=== PATIENT | female | born 1940 | race Hispanic/Latino ===

== ENCOUNTER 2017-01-31 09:57 | Outpatient (CLI) | payer MEDICARE, OTHER ==
--- NOTE | 2017-02-01 09:05 | PET Report ---
PET/CT:01/31/17 09:57:00 CLINICAL: Lung cancer restaging. RADIOPHARMACEUTICAL: 14.48mCi F18-FDG. COMPARISON: 10/25/16 PET/CT TECHNIQUE- Following intravenous injection of F-18 FDG and an approximately 60 minute uptake period, CT and PET images from the mid skull to the upper thighs were acquired with the patient in the fasted state. No contrast was administered. The CT protocol used for this PET CT study is designed for attenuation correction and anatomic localization of PET abnormalities. This semiconductor wafers saw operator CT is not desired to produce and cannot replace, czsdt-rn-hcc-art diagnostic CT scans with specific imaging protocols for different body parts and indications. Plasma glucose at the time of this test: 98g/dl. The standardized uptake values (SUV) are normalized to patient body weight and indicate the highest activity concentration (SUV max) in a given disease site. FINDINGS: Brain--Physiologic FDG uptake in the visualized regions of the brain. Neck--Physiologic FDG uptake . Chest--Physiologic FDG uptake in mediastinal blood pool and myocardium. Stable 2 cm soft tissue mass overlying the right seventh rib. FDG uptake is equal to background. Lungs--No abnormal uptake. No pulmonary nodule or mass. Stable right upper lobe scar. Pleura/pericardium--No abnormal uptake. Thoracic nodes--No abnormal uptake. Hepatobiliary--No abnormal uptake. Liver background SUV mean, as a reference for comparing FDG studies, is 4.4 compared to 4.0 on the last exam. No liver mass. Spleen--No abnormal uptake. Pancreas--No abnormal uptake. Adrenal Glands--No abnormal uptake. Kidneys/Ureters/Bladder--No abnormal uptake. Abdominopelvic Nodes--No abnormal uptake. Bowel/Peritoneum/Mesentery--No abnormal uptake. Pelvic organs--No abnormal uptake. Bones/Soft Tissues--No abnormal uptake. 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 Other findings: Status post cystectomy with a right ileal pouch. IMPRESSION- Negative study with no evidence of disease recurrence or metastasis. Stable probably benign 2 cm soft tissue mass in the right lateral chest wall at the right seventh rib.
== END 2017-01-31 09:58 | disposition home or self-care (01) ==
LOC: PET 09:57
PROVIDERS: ATTEND Internal Medicine Hematology & Oncology
DX: C34.91 Malignant neoplasm of unspecified part of right bronchus or lung (principal); C67.9 Malignant neoplasm of bladder, unspecified; M84.38XD Stress fracture, other site, subsequent encounter for fracture with routine healing; R22.2 Localized swelling, mass and lump, trunk; Z90.6 Acquired absence of other parts of urinary tract; Z79.899 Other long term (current) drug therapy; X58.XXXD Exposure to other specified factors, subsequent encounter
CPT/HCPCS: 78815; 82962; A9552

== ENCOUNTER 2017-05-09 12:41 | Outpatient (CLI) | payer MEDICARE, OTHER ==
--- NOTE | 2017-05-10 13:23 | PET Report ---
PET/CT:05/09/17 12:41:00 CLINICAL: Lung cancer restaging RADIOPHARMACEUTICAL: 14.74mCi F18-FDG. COMPARISON: 01/04/17 PET/CT TECHNIQUE- Following intravenous injection of F-18 FDG and an approximately 60 minute uptake period, CT and PET images from the mid skull to the upper thighs were acquired with the patient in the fasted state. No contrast was administered. The CT protocol used for this PET CT study is designed for attenuation correction and anatomic localization of PET abnormalities. This cable splicer assistant CT is not desired to produce and cannot replace, ftphz-rb-umn-art diagnostic CT scans with specific imaging protocols for different body parts and indications. Plasma glucose at the time of this test: 103g/dl. The standardized uptake values (SUV) are normalized to patient body weight and indicate the highest activity concentration (SUV max) in a given disease site. FINDINGS: Brain--Physiologic FDG uptake in the visualized regions of the brain. Neck--Physiologic FDG uptake . Chest--Physiologic FDG uptake in mediastinal blood pool and myocardium. A stable 2 cm soft tissue mass overlying the right seventh rib with FDG uptake equal to background at 2.7. Lungs--No abnormal uptake. Stable posterior right upper lobe scar. No pulmonary nodule or mass. Pleura/pericardium--No abnormal uptake. Thoracic nodes--No abnormal uptake. Hepatobiliary--No abnormal uptake. Liver background SUV mean, as a reference for comparing FDG studies, is 4.9 compared to 4.5 on the last exam. No liver mass. Spleen--No abnormal uptake. Pancreas--No abnormal uptake. Adrenal Glands--No abnormal uptake. Kidneys/Ureters/Bladder--No abnormal uptake. Abdominopelvic Nodes--No abnormal uptake. Bowel/Peritoneum/Mesentery--No abnormal uptake. Pelvic organs--No abnormal uptake. Bones/Soft Tissues--No abnormal uptake. 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 Other findings: Status post cystectomy with a right ileal pouch. IMPRESSION- Stable disease with no new finding.
== END 2017-05-09 12:42 | disposition home or self-care (01) ==
LOC: PET 12:41
PROVIDERS: ATTEND Internal Medicine Hematology & Oncology
DX: C34.91 Malignant neoplasm of unspecified part of right bronchus or lung (principal); C67.9 Malignant neoplasm of bladder, unspecified; J98.4 Other disorders of lung; M79.89 Other specified soft tissue disorders; M84.3 Stress fracture; X58.XXXD Exposure to other specified factors, subsequent encounter; I10 Essential (primary) hypertension; E03.9 Hypothyroidism, unspecified; D64.9 Anemia, unspecified; Z90.6 Acquired absence of other parts of urinary tract; Z79.899 Other long term (current) drug therapy
CPT/HCPCS: 78815; 82962; A9552

== ENCOUNTER 2018-01-02 06:34 | Outpatient (CLI) | payer MEDICARE, OTHER ==
--- NOTE | 2018-01-03 15:40 | PET Report ---
PET/CT:01/02/18 06:34:00 CLINICAL: Lung cancer restaging. RADIOPHARMACEUTICAL: 15.26mCi F18-FDG. COMPARISON: 05/09/17 PET/CT TECHNIQUE- Following intravenous injection of F-18 FDG and an approximately 60 minute uptake period, CT and PET images from the mid skull to the upper thighs were acquired with the patient in the fasted state. No contrast was administered. The CT protocol used for this PET CT study is designed for attenuation correction and anatomic localization of PET abnormalities. This door operator CT is not desired to produce and cannot replace, vyett-ql-swd-art diagnostic CT scans with specific imaging protocols for different body parts and indications. Plasma glucose at the time of this test: 98g/dl. The standardized uptake values (SUV) are normalized to patient body weight and indicate the highest activity concentration (SUV max) in a given disease site. FINDINGS: Brain--Physiologic FDG uptake in the visualized regions of the brain. Neck--Physiologic FDG uptake . Chest--Physiologic FDG uptake in mediastinal blood pool and myocardium. Lungs--No abnormal uptake. Stable right upper lobe posterior scar. No pulmonary nodule or mass. Pleura/pericardium--No abnormal uptake. Thoracic nodes--No abnormal uptake. Hepatobiliary--No abnormal uptake. Liver background SUV mean, as a reference for comparing FDG studies, is 2.7 compared to 4.3 on the last exam. No liver mass. Spleen--No abnormal uptake. Pancreas--No abnormal uptake. Adrenal Glands--No abnormal uptake. Kidneys/Ureters/Bladder--No abnormal uptake. Abdominopelvic Nodes--No abnormal uptake. Bowel/Peritoneum/Mesentery--No abnormal uptake. Pelvic organs--No abnormal uptake. Bones/Soft Tissues--No abnormal uptake. 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 Other findings: Status post cystectomy with a right ileal pouch. IMPRESSION- Negative study.Stable right upper lobe benign lung scar.
== END 2018-01-02 06:35 | disposition home or self-care (01) ==
LOC: PET 06:34
PROVIDERS: ATTEND Internal Medicine Hematology & Oncology
DX: C34.81 Malignant neoplasm of overlapping sites of right bronchus and lung (principal); C67.9 Malignant neoplasm of bladder, unspecified; S32.591K Other specified fracture of right pubis, subsequent encounter for fracture with nonunion; J98.4 Other disorders of lung; Z90.6 Acquired absence of other parts of urinary tract; Z79.899 Other long term (current) drug therapy; X58.XXXD Exposure to other specified factors, subsequent encounter
CPT/HCPCS: 78815; 82962; A9552

== ENCOUNTER 2018-05-15 08:21 | Outpatient (CLI) | payer MEDICARE, OTHER ==
--- NOTE | 2018-05-16 11:17 | PET Report ---
PET/CT:05/15/18 08:21:00 CLINICAL: Lung cancer restaging. RADIOPHARMACEUTICAL: 16.498mCi F18-FDG. COMPARISON: 01/02/18 PET/CT TECHNIQUE- Following intravenous injection of F-18 FDG and an approximately 60 minute uptake period, CT and PET images from the mid skull to the upper thighs were acquired with the patient in the fasted state. No contrast was administered. The CT protocol used for this PET CT study is designed for attenuation correction and anatomic localization of PET abnormalities. This fiber drier operator CT is not desired to produce and cannot replace, ackgd-ps-zez-art diagnostic CT scans with specific imaging protocols for different body parts and indications. Plasma glucose at the time of this test: 90g/dl. The standardized uptake values (SUV) are normalized to patient body weight and indicate the highest activity concentration (SUV max) in a given disease site. FINDINGS: Brain--Physiologic FDG uptake in the visualized regions of the brain. Neck--Physiologic FDG uptake . Chest--Physiologic FDG uptake in mediastinal blood pool and myocardium. Lungs--No abnormal uptake. Stable right upper lobe parenchymal scar. No pulmonary nodule or mass. Pleura/pericardium--No abnormal uptake. Thoracic nodes--No abnormal uptake. Hepatobiliary--No abnormal uptake. Liver background SUV mean, as a reference for comparing FDG studies, is 5.3 compared to 2.7 on the last exam. No liver mass. Stable benign right hepatic cyst. Spleen--No abnormal uptake. Pancreas--No abnormal uptake. Adrenal Glands--No abnormal uptake. Kidneys/Ureters/Bladder--No abnormal uptake. Asymmetric FDG activity with a paucity of activity in the left renal collecting system. The left renal collecting system is nondilated. Abdominopelvic Nodes--No abnormal uptake. Bowel/Peritoneum/Mesentery--No abnormal uptake. Pelvic organs--No abnormal uptake. Bones/Soft Tissues--No abnormal uptake. 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 Other findings: Status post cystectomy with a right ileal pouch. IMPRESSION- 1. No evidence of disease recurrence or metastasis. 2. Asymmetric FDG activity in the kidneys with a paucity of activity in the left renal collecting system suggesting possible decreased left renal function. This is a new finding compared to previous exams. No evidence of left renal obstruction.
== END 2018-05-15 08:22 | disposition home or self-care (01) ==
LOC: PET 08:21
PROVIDERS: ATTEND Internal Medicine Hematology & Oncology
DX: C34.91 Malignant neoplasm of unspecified part of right bronchus or lung (principal); C67.9 Malignant neoplasm of bladder, unspecified; J98.4 Other disorders of lung; K76.89 Other specified diseases of liver; I10 Essential (primary) hypertension; K21.9 Gastro-esophageal reflux disease without esophagitis; M19.90 Unspecified osteoarthritis, unspecified site; E03.9 Hypothyroidism, unspecified; D64.9 Anemia, unspecified; Z83.3 Family history of diabetes mellitus; Z93.50 Unspecified cystostomy status; Z90.710 Acquired absence of both cervix and uterus; Z82.61 Family history of arthritis
CPT/HCPCS: 78815; 82962; A9552

== ENCOUNTER 2018-05-19 12:46 | Outpatient (CLI) | payer MEDICARE, OTHER ==
--- NOTE | 2018-05-19 15:56 | Mammography Report ---
BONE DEXA:05/19/18 12:46:00 CLINICAL: History of right breast cancer. COMPARISON: 04/07/15 TECHNIQUE: Two site bone DEXA performed on an Hologic scanner. FINDINGS: The average BMD of the lumbar spine L1-L4 is 0.911g/cm squared with a T-score of -1.2 and a Z-score of +1.2. This compares to 0.757g/cm squared on the last exam and represents a +20.4% change from the previous study and a +2.1% change from baseline.. The average BMD of the left hip is 0.599g/cm squared with a T-score of -2.8 and a Z-score of -1.0. This compares to 0.561g/cm squared on the last exam and represents a +6.8% change from the previous study and a -20.0% change from baseline. IMPRESSION: 1. WHO classification: Osteopenia with increased fracture risk based on spine measurements. However, a marked improvement in spine BMD compared to the last exam. 2. WHO classification: Osteoporosis with high fracture risk based on left hip measurements. A moderate improvement in left hip BMD compared to the last exam. RECOMMENDATION: Clinical correlation and routine screening. DEFINITIONS: BMD = Bone Mineral Density T-score = BMD related to mean peak bone mass of young adult (mean expressed in Standard Deviation) Z-score = Age matched BMD expressed in SD World Health Organization (WHO) Diagnostic Criteria Normal T-score > -1 SD Osteopenia T-score between -1 and -2.4 SD Osteoporosis T-score -2.5 SD or below NOTE: BMD is not the only risk factor for fracture; also consider factors such as the patient's age, risk of falling, previous osteoporotic fracture, family history of osteoporotic fractures, current smoker, and low body weight. Z-scores are not calculated if >80 years of age.
== END 2018-05-19 12:47 | disposition home or self-care (01) ==
LOC: MAMMO 12:46
PROVIDERS: ATTEND Internal Medicine Hematology & Oncology
DX: C34.91 Malignant neoplasm of unspecified part of right bronchus or lung (principal); M81.0 Age-related osteoporosis without current pathological fracture; M85.80 Other specified disorders of bone density and structure, unspecified site; I10 Essential (primary) hypertension; E03.9 Hypothyroidism, unspecified; D64.9 Anemia, unspecified; Z90.710 Acquired absence of both cervix and uterus; F17.210 Nicotine dependence, cigarettes, uncomplicated
CPT/HCPCS: 77080

== ENCOUNTER 2018-06-27 09:36 | Outpatient (CLI) | payer MEDICARE, OTHER ==
[2018-06-27 10:25] LABS: Calcium 9.1 mg/dL (8.4-10.2)
[2018-06-27 11:17] LABS: Creatinine,Urine 74.9 mg/dL (0.1-20.0); Protein/Creatinine Ratio,Urine 1.09
[2018-06-27 12:56] LABS: Hepatitis A Antibody IgM Non-Reactive (NonReactive); Hepatitis B Core IgM Non-Reactive (NonReactive); Hepatitis B Surface Antigen Non-Reactive (Negative); Hepatitis C Virus Antibody Non-Reactive (NonReactive)
[2018-06-30 21:08] LABS: Albumin 3.8 g/dL (3.8-4.8); Gamma Globulin 0.8 g/dL (0.8-1.7)
== END 2018-06-27 09:37 | disposition home or self-care (01) ==
LOC: LAB 09:36
PROVIDERS: ATTEND Internal Medicine Nephrology
DX: R94.4 Abnormal results of kidney function studies (principal); E03.9 Hypothyroidism, unspecified; I10 Essential (primary) hypertension; K21.9 Gastro-esophageal reflux disease without esophagitis; M19.90 Unspecified osteoarthritis, unspecified site; Z90.89 Acquired absence of other organs; Z87.891 Personal history of nicotine dependence; Z90.721 Acquired absence of ovaries, unilateral
CPT/HCPCS: 36415; 80048; 80074; 82040; 82570; 84100; 84156; 84165

== ENCOUNTER 2018-07-02 08:50 | Outpatient (CLI) | payer MEDICARE, OTHER ==
--- NOTE | 2018-07-03 07:46 | Nuclear Medicine Report ---
NUCLEAR MEDICINE RENAL SCAN ROUTINE HISTORY: Malignant neoplasm of lung and bladder. Evaluate function of kidneys. TECHNIQUE: Posterior flow and function imaging was performed following injection of 5 mCi of technetium 99m MAG3. Renogram curves were constructed. COMPARISON: Correlation is made with the PET CT dated 05/15/18. FINDINGS: The posterior flow images demonstrate asymmetric flow to the kidneys. There appears to be normal flow to the left kidney and moderately reduced flow to the right kidney. The posterior function images demonstrate normal uptake and excretion of the radiotracer in the left kidney. The right kidney appears mildly atrophic. Mild pyelocaliectasis within the right kidney is suspected. 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 No Lasix was administered. Split function measures 67% left kidney and 33% right kidney. IMPRESSION: Apparent normal function of the left kidney. The right kidney demonstrates decreased flow and function compared to the right side with suggestion of mild obstruction/pyelocaliectasis. Please note that review of the PET/CT images also suggests mild right hydronephrosis although the site of obstruction is not clearly identified. Split function measures 67% left kidney and 33% right kidney.
== END 2018-07-02 08:51 | disposition home or self-care (01) ==
LOC: NM 08:50
PROVIDERS: ATTEND Internal Medicine Hematology & Oncology
DX: C34.91 Malignant neoplasm of unspecified part of right bronchus or lung (principal); C67.9 Malignant neoplasm of bladder, unspecified; I10 Essential (primary) hypertension; M19.90 Unspecified osteoarthritis, unspecified site; E03.9 Hypothyroidism, unspecified; K21.9 Gastro-esophageal reflux disease without esophagitis; Z90.710 Acquired absence of both cervix and uterus; Z90.89 Acquired absence of other organs; Z90.722 Acquired absence of ovaries, bilateral; Z90.49 Acquired absence of other specified parts of digestive tract
CPT/HCPCS: 78707; A9562

== ENCOUNTER 2018-08-21 09:09 | Outpatient (CLI) | payer MEDICARE, OTHER ==
--- NOTE | 2018-08-21 13:56 | PET Report ---
PET/CT:08/21/18 09:09:00 CLINICAL: Lung cancer restaging. RADIOPHARMACEUTICAL: 15.379mCi F18-FDG. COMPARISON: 05/15/18 PET/CT TECHNIQUE- Following intravenous injection of F-18 FDG and an approximately 60 minute uptake period, CT and PET images from the mid skull to the upper thighs were acquired with the patient in the fasted state. No contrast was administered. The CT protocol used for this PET CT study is designed for attenuation correction and anatomic localization of PET abnormalities. This vice president for philanthropy CT is not desired to produce and cannot replace, pclnd-jp-ive-art diagnostic CT scans with specific imaging protocols for different body parts and indications. Plasma glucose at the time of this test: 95g/dl. The standardized uptake values (SUV) are normalized to patient body weight and indicate the highest activity concentration (SUV max) in a given disease site. FINDINGS: Brain--Physiologic FDG uptake in the visualized regions of the brain. Neck--Physiologic FDG uptake the mucosal structures. No mass or lymphadenopathy. Chest--Physiologic FDG uptake in mediastinal blood pool and myocardium. Lungs--No abnormal uptake. Stable right upper lobe lung scar. No pulmonary nodule or mass. Pleura/pericardium--No abnormal uptake. Thoracic nodes--No abnormal uptake. Hepatobiliary--No abnormal uptake. Liver background SUV mean, as a reference for comparing FDG studies, is 3.5 compared to 4.8 on the last exam. No liver mass. 2 stable benign right hepatic cysts with largest measuring 1.7 cm. Spleen--No abnormal uptake. Pancreas--No abnormal uptake. Adrenal Glands--No abnormal uptake. Kidneys/Ureters/Bladder--No abnormal uptake. Abdominopelvic Nodes--No abnormal uptake. Bowel/Peritoneum/Mesentery--No abnormal uptake. No suspicious bone lesion. Pelvic organs--No abnormal uptake. Bones/Soft Tissues--No abnormal uptake. Other findings: Ileal conduit and normal bilateral renal activity. IMPRESSION- No evidence of disease recurrence or metastasis. Stable right upper lobe lung scar.
== END 2018-08-21 09:10 | disposition home or self-care (01) ==
LOC: PET 09:09
PROVIDERS: ATTEND Internal Medicine Hematology & Oncology
DX: C34.91 Malignant neoplasm of unspecified part of right bronchus or lung (principal); I10 Essential (primary) hypertension; E03.9 Hypothyroidism, unspecified; M19.90 Unspecified osteoarthritis, unspecified site; K21.9 Gastro-esophageal reflux disease without esophagitis; Z90.89 Acquired absence of other organs; Z90.710 Acquired absence of both cervix and uterus; Z90.722 Acquired absence of ovaries, bilateral; Z90.6 Acquired absence of other parts of urinary tract
CPT/HCPCS: 78815; 82962; A9552

== ENCOUNTER 2019-04-02 08:38 | Outpatient (CLI) | payer MEDICARE ==
--- NOTE | 2019-04-06 09:50 | PET Report ---
PET/CT:04/02/19 08:38:00 CLINICAL: Lung cancer and bladder cancer restaging. RADIOPHARMACEUTICAL: 15.801mCi F18-FDG. COMPARISON: 12/11/18 PET/CT and additional studies going back to 04/01/12 TECHNIQUE- Following intravenous injection of F-18 FDG and an approximately 60 minute uptake period, CT and PET images from the mid skull to the upper thighs were acquired with the patient in the fasted state. No contrast was administered. The CT protocol used for this PET CT study is designed for attenuation correction and anatomic localization of PET abnormalities. This vine pruner CT is not desired to produce and cannot replace, oiken-pe-cal-art diagnostic CT scans with specific imaging protocols for different body parts and indications. Plasma glucose at the time of this test: 101g/dl. The standardized uptake values (SUV) are normalized to patient body weight and indicate the highest activity concentration (SUV max) in a given disease site. FINDINGS: Brain--Physiologic FDG uptake in the visualized regions of the brain. Neck--Physiologic FDG uptake in mucosal structures. No mass or lymphadenopathy. Chest--Physiologic FDG uptake in mediastinal blood pool and myocardium. A stable soft tissue mass of the right chest wall measures 2.3 x 1.3 cm. FDG uptake is equal to background. Lungs--No abnormal uptake. Stable benign right upper lobe lung scar. No pulmonary nodule or mass. Pleura/pericardium--No abnormal uptake. Thoracic nodes--No suspicious uptake. Hepatobiliary--No abnormal uptake. Liver background SUV mean, as a reference for comparing FDG studies, is 5.7 compared to 4.7 on the last exam. Stable benign hepatic cysts. No liver mass. Spleen--No abnormal uptake. Pancreas--No abnormal uptake. Adrenal Glands--No abnormal uptake. Kidneys/Ureters/Bladder--No abnormal uptake. Abdominopelvic Nodes--No abnormal uptake. Bowel/Peritoneum/Mesentery--No abnormal uptake. Pelvic organs--No abnormal uptake. Status post cystectomy with an ileal conduit. Bones/Soft Tissues--No abnormal uptake and no suspicious bone lesions. Stable chronic right superior and inferior pubic rami insufficiency fractures. IMPRESSION- Negative study.No evidence of disease recurrence or metastasis.
== END 2019-04-02 08:39 | disposition home or self-care (01) ==
LOC: PET 08:38
PROVIDERS: ATTEND Internal Medicine Hematology & Oncology
DX: C34.91 Malignant neoplasm of unspecified part of right bronchus or lung (principal); C67.9 Malignant neoplasm of bladder, unspecified; I10 Essential (primary) hypertension; K21.9 Gastro-esophageal reflux disease without esophagitis; K76.89 Other specified diseases of liver; E03.9 Hypothyroidism, unspecified; Z90.710 Acquired absence of both cervix and uterus; Z90.89 Acquired absence of other organs; Z79.899 Other long term (current) drug therapy; R91.8 Other nonspecific abnormal finding of lung field
CPT/HCPCS: 78815; 82962; A9552

== ENCOUNTER 2019-06-16 10:47 | Outpatient (CLI) | payer MEDICARE ==
--- NOTE | 2019-06-16 11:39 | Mammography Report ---
DIGITAL SCREENING MAMMOGRAM WITH CAD, 06/16/2019 INDICATION: Routine screening mammography. TECHNIQUE: Digital bilateral 2D mammography was obtained in the craniocaudal and mediolateral obliq ue projections. This examination was interpreted with the benefit of Computer-Aided Detection analysi s. COMPARISON: 06/03/2018, 05/31/2017 FINDINGS: Breast Density: There are scattered areas of fibroglandular density. There is no evidence of dominant mass, suspicious calcifications or architectural distortion in the r ight breast. Biopsy changes and lumpectomy changes are again noted on the right. On the left biopsy c hanges are again seen. A benign-appearing ovoid 7 mm nodule in the left lower inner subareolar region , approximately 2 cm medial to the nipple, is slowly enlarging. IMPRESSION: Mildly enlarging probably benign nodule left breast. Recommend ultrasound. BI-RADS Category 0: Incomplete. Needs additional imaging evaluation and/or prior mammograms for justo rison. A "normal" or negative report should not discourage follow up or biopsy of a clinically significant f inding. A written summary of these findings will be mailed to the patient. The patient will be entered into a mammography reporting system which will generate a reminder letter for the patient's next appointmen t at the appropriate interval. The [employer] recommends yearly mammograms starting at age 40 and continuing as l poly as a woman is in good health. Breast MRI is recommended for women with an approximate 20-25% or greater lifetime risk of breast cancer, including women with a strong family history of breast or ova fam cancer or who have been treated for Hodgkin's disease. Signer Name: Dmitri Leigh MD Signed: 06/16/2019 11:34 AM Workstation Name: [id number]
--- NOTE | 2019-06-16 14:48 | Ultrasound Report ---
Left breast ultrasound INDICATION: Gradually increasing density in the left breast on screening mammogram today COMPARISON: Screening mammogram today In the 9:00 position, 2 cm from the nipple, a benign simple cyst is seen measuring 5 mm which is thou ght to account for the radiographic abnormality. No further evaluation is felt necessary. IMPRESSION: Benign simple cyst BI-RADS 2, benign Signer Name: Dmitri Leigh MD Signed: 06/16/2019 2:44 PM Workstation Name: [id number]
== END 2019-06-16 10:48 | disposition home or self-care (01) ==
LOC: SPVWC 10:47
PROVIDERS: ATTEND Surgery
DX: Z12.31 Encounter for screening mammogram for malignant neoplasm of breast (principal); N60.02 Solitary cyst of left breast
CPT/HCPCS: 77067

== ENCOUNTER 2019-07-16 09:36 | Outpatient (CLI) | payer MEDICARE ==
--- NOTE | 2019-07-16 16:35 | PET Report ---
PET/CT HISTORY: C34.91, C67.9. Restaging of lung and bladder cancer TECHNIQUE: The patient's fasting blood glucose was 103. The patient weighed 190 lbs. The patient w as injected with 13.3 mCi of FDG in the right antecubital fossa at 1039 hours and imaging was started at 1129 hours. The patient was imaged from the skull base to the thighs. All CT scans at this [facility] are performed using CT dose reduction for ALARA by means of automated exposure control. COMPARISON: 04/02/2019 FINDINGS: FDG findings: There is a subtle soft tissue density nodule along the right lateral chest wall near t he tip of the right scapula measuring 2.5 x 1.9 cm in axial plane. There is mild hypermetabolic activ ity within this lesion with max SUV measuring 4.1. In retrospect, this is identified on the previous examination and appears slightly larger. This lesion measured 2.4 x 1.3 cm on the previous exam with max SUV measuring 4.4. No additional areas of abnormal metabolic activity are identified. Mean liver SUV measures 4.3. Non-FDG findings: The visualized brain is unremarkable. No cervical adenopathy or mass. There is minor linear scarring or segmental atelectasis in the right upper lobe. No pulmonary nodule or mass. Heart size is borderline. The liver is normal size and contour. Scattered hypodensities in the liver consistent with small cyst s or hemangiomas which are unchanged. Small gallstones are noted in the gallbladder. The pancreas, sp too, kidneys, adrenal glands and bowel loops are within normal limits. Cystectomy changes with ileal conduit formation are noted. No suspicious abdominal mass or adenopathy. The bony structures are mildly demineralized. IMPRESSION: A suspicious 2.5 x 1.9 cm soft tissue density nodule is noted along the right lateral sita st wall as described above. This is suspicious for a solitary metastasis. Please see above. Signer Name: Josef Fenton Jr, MD Signed: 07/16/2019 4:31 PM Workstation Name: [id number]
== END 2019-07-16 09:37 | disposition home or self-care (01) ==
LOC: PET 09:36
PROVIDERS: ATTEND Internal Medicine Hematology & Oncology
DX: C34.91 Malignant neoplasm of unspecified part of right bronchus or lung (principal); I10 Essential (primary) hypertension; K21.9 Gastro-esophageal reflux disease without esophagitis; Z90.710 Acquired absence of both cervix and uterus; Z79.899 Other long term (current) drug therapy
CPT/HCPCS: 78815; 82962; A9552

== ENCOUNTER 2019-07-28 09:01 | Day surgery (SDC) | payer MEDICARE ==
[2019-07-28] MEDS ORDERED: DILAUDID IV ONE (09:22)
[2019-07-28] MEDS ORDERED: ZOFRAN IV ONE (09:23)
[2019-07-28 09:47] LABS: Basophils % (Auto) 0.7 % (0.0-1.8); Eosinophils # (Auto) 0.1 K/mm3 (0.0-0.4); Eosinophils % (Auto) 1.3 % (0.0-4.3); Hematocrit 39.4 % (30.3-42.9); Hemoglobin 13.1 gm/dl (10.1-14.3); Lymphocytes # (Auto) 0.8 K/mm3 (1.2-5.4); Lymphocytes % (Auto) 10.9 % (13.4-35.0); Mean Corpuscular HGB Conc 33 % (30-34); Mean Corpuscular Volume 90 fl (79-97); Monocytes # (Auto) 0.5 K/mm3 (0.0-0.8); Monocytes % (Auto) 7.2 % (0.0-7.3); Platelet Count 238 K/mm3 (140-440); Red Blood Count 4.39 M/mm3 (3.65-5.03); Red Cell Distribution Width 15.3 % (13.2-15.2)
[2019-07-28 10:30] LABS: INR 1.03 (0.87-1.13)
[2019-07-28 10:31] LABS: Partial Thromboplastin Time 34.1 Sec. (24.2-36.6)
[2019-07-28] MEDS ORDERED: DILAUDID ONE (12:50)
[2019-07-28] MEDS ORDERED: ZOFRAN ONE (12:51)
[2019-07-28] MEDS ORDERED: NACL 0.9% 500 ML 0 ML ONE (12:51)
--- NOTE | 2019-07-28 14:44 | Cat Scan Report ---
CT-guided right chest wall mass biopsy INDICATION : Patient has a history of bladder cancer with metastasis to the right axilla. Patient has had a nodule interposed between the inferior tip of the scapula and the chest wall on the right for several years which shows mild FDG uptake, here for definitive diagnosis.. COMPARISON: Several PET scans from 07/16/2019 dating back to 2011 PROCEDURE: The risks (including but not limited to bleeding and infection) and benefits were explain ed to the patient and informed consent was obtained. All CT scans at this location are performed usi ng CT dose reduction for ALARA by means of automated exposure control. A time out procedure was performed. The procedure site was prepped and draped in the usual sterile f ashion and lidocaine was used for local anesthesia. With the patient in a prone position, a 19-gauge coaxial needle was advanced from a posterior approac h along the right lateral chest wall under direct CT guidance. The needle was advanced the posterior margin of a nodular density interposed between the inferior tip of the scapula and the chest wall. A total of 3 separate 20-gauge CT-guided biopsies were performed and samples were placed directly [facility]. A postprocedure scan showed no immediate complication. The patient tolerated the procedure well with no complications. IMPRESSION: Successful CT-guided right chest wall nodule biopsy Signer Name: Amanuel Erickson MD Signed: 07/28/2019 2:39 PM Workstation Name: [id number]
[2019-07-28 15:01] VITALS: BP 123/44
== END 2019-07-28 15:18 | disposition home or self-care (01) ==
LOC: CATHLABREC 09:01
PROVIDERS: ATTEND Internal Medicine Hematology & Oncology
DX: C34.91 Malignant neoplasm of unspecified part of right bronchus or lung (principal); C67.9 Malignant neoplasm of bladder, unspecified; M19.90 Unspecified osteoarthritis, unspecified site; E03.9 Hypothyroidism, unspecified; H40.9 Unspecified glaucoma; I10 Essential (primary) hypertension; K21.9 Gastro-esophageal reflux disease without esophagitis; Z79.899 Other long term (current) drug therapy; Z98.41 Cataract extraction status, right eye; Z98.42 Cataract extraction status, left eye; Z85.3 Personal history of malignant neoplasm of breast; Z90.710 Acquired absence of both cervix and uterus; Z98.890 Other specified postprocedural states; Z72.89 Other problems related to lifestyle; Z88.8 Allergy status to other drugs, medicaments and biological substances; Z79.01 Long term (current) use of anticoagulants
CPT/HCPCS: 32405; 36415; 77012; 85025; 85610; 85730; 88305; 88313; 96374; 96375; J1170; J2405; J7040

== ENCOUNTER 2020-01-04 09:18 | Outpatient (CLI) | payer MEDICARE ==
--- NOTE | 2020-01-04 14:15 | Nuclear Medicine Report ---
NUCLEAR MEDICINE BONE SCAN, WHOLE BODY INDICATION: C34.91Malignant neoplasm of unspecified part of right bronchus or. TECHNIQUE: 26 mCi of Tc-99m MDP were injected IV. Whole body images were obtained. COMPARISON: No relevant prior imaging study available. FINDINGS: Skeletal Structures: Fairly symmetric, likely degenerative uptake is present involving the shoulders and feet. Photopenic defect at the right knee is identified suggesting knee replacement.. Skeletal Lesions: There is abnormal uptake overlying the right side of the pelvis which is secondary to contamination of a diaper/catheter. No convincing suspicious bony lesions are identified to sugges t metastatic disease to the bones. Soft Tissues: Normal. Kidneys: Normal, symmetric activity. Additional Findings: None. IMPRESSION: Negative bone scan. See above. Signer Name: Josef Fenton Jr, MD Signed: 01/04/2020 2:11 PM Workstation Name: [id number]
== END 2020-01-04 09:19 | disposition home or self-care (01) ==
LOC: NM 09:18
PROVIDERS: ATTEND Internal Medicine Hematology & Oncology
DX: C34.91 Malignant neoplasm of unspecified part of right bronchus or lung (principal); C67.9 Malignant neoplasm of bladder, unspecified
CPT/HCPCS: 78306; A9503

== ENCOUNTER 2020-01-07 10:40 | Outpatient (CLI) | payer MEDICARE ==
--- NOTE | 2020-01-07 15:04 | PET Report ---
PET/CT HISTORY: C34.91. Restaging of bladder and lung cancer TECHNIQUE: The patient's fasting blood glucose was 109. The patient weighed 190 lbs. The patient w as injected with 13.45 mCi of FDG in the right antecubital fossa at 1137 hours and imaging was starte d at 1222 hours. The patient was imaged from the skull base to the thighs. All CT scans at this loca tion are performed using CT dose reduction for ALARA by means of automated exposure control. Images w ere reviewed on a workstation. COMPARISON: 07/16/2019 FINDINGS: IMAGED BRAIN: [Physiologic FDG uptake] NECK: [Physiologic FDG uptake] CHEST WALL: [Previously described soft tissue mass in the lateral right chest wall is stable in size measuring 2.5 x 1.9. Max SUV has decreased from 4.4 to 3.6. MEDIASTINUM: [Physiologic FDG uptake] LUNGS: [Physiologic FDG uptake]. Focal linear scarring in the posterior right upper lobe is stable. No new or suspicious pulmonary nodule/mass has developed. HEPATOBILIARY: [Physiologic FDG uptake]. Liver SUV measures 5.9 as opposed to 4.3 on the previous ex am. No focal liver lesion is detected. Cholelithiasis is again noted. PANCREAS: [Physiologic FDG uptake SPLEEN: [Physiologic FDG uptake] KIDNEYS/BLADDER: [Physiologic FDG uptake]. Cystectomy changes with ileal conduit formation are again noted. ADRENAL GLANDS: [Physiologic FDG uptake] GI/MESENTERY: [Physiologic FDG uptake] PELVIC VISCERA: [Physiologic FDG uptake]. Hysterectomy changes. LYMPH NODES: [Physiologic FDG uptake] OSSEOUS STRUCTURES: [Physiologic FDG uptake] ADDITIONAL FINDINGS: [None] IMPRESSION: Negative PET CT. No evidence for disease recurrence or metastasis. 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 Signer Name: Josef Fenton Jr, MD Signed: 01/07/2020 2:59 PM Workstation Name: [id number]
== END 2020-01-07 10:41 | disposition home or self-care (01) ==
LOC: PET 10:40
PROVIDERS: ATTEND Internal Medicine Hematology & Oncology
DX: C67.9 Malignant neoplasm of bladder, unspecified (principal); C34.31 Malignant neoplasm of lower lobe, right bronchus or lung; K80.20 Calculus of gallbladder without cholecystitis without obstruction; Z90.49 Acquired absence of other specified parts of digestive tract; Z90.710 Acquired absence of both cervix and uterus
CPT/HCPCS: 78815; 82962; A9552

== ENCOUNTER 2020-06-23 11:13 | Outpatient (CLI) | payer MEDICARE ==
--- NOTE | 2020-06-23 13:05 | Magnetic Resonance Report ---
MR brain wo/w con INDICATION / CLINICAL INFORMATION: 80 years Female; DIZZINESS/Malignant neoplasm of unspecified part of right bronchu. TECHNIQUE: Multiplanar, multisequence MR images of the brain were obtained. COMPARISON: None available. FINDINGS: BRAIN / INTRACRANIAL CONTENTS: There are scattered hyperintense foci involving the cerebral white mat ter on the FLAIR sequences, most notable along the periventricular regions and most consistent with m icrovascular angiopathy. The diffusion imaging reveals no evidence of acute infarction. There is mild cerebral atrophy with associated mild prominence of the ventricular system. No extra-ax ial fluid collections or significant mass effect is identified. The motion degrades the image quality , particularly on the postcontrast sequences, the last be acquired. However, no definitive intracrani al enhancing lesions are appreciated. CRANIOCERVICAL JUNCTION: No significant abnormality. VASCULAR FLOW-VOIDS: No significant abnormality. ORBITS: No significant abnormality of visualized orbits. SINUSES / MASTOIDS: There is mild mucosal thickening within the right sphenoid sinus. ADDITIONAL FINDINGS: None. IMPRESSION: 1. 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 Signer Name: Latrell Durand MD Signed: 06/23/2020 1:01 PM Workstation Name: [id number]
== END 2020-06-23 11:14 | disposition home or self-care (01) ==
LOC: MRI 11:13
PROVIDERS: ATTEND Internal Medicine Hematology & Oncology
DX: C34.91 Malignant neoplasm of unspecified part of right bronchus or lung (principal); C67.9 Malignant neoplasm of bladder, unspecified; C34.31 Malignant neoplasm of lower lobe, right bronchus or lung; I67.9 Cerebrovascular disease, unspecified
CPT/HCPCS: 70553; A9577

== ENCOUNTER 2020-07-07 09:23 | Outpatient (CLI) | payer MEDICARE ==
--- NOTE | 2020-07-07 14:01 | PET Report ---
PET/CT HISTORY: C34.91. Restaging of lung and bladder cancer TECHNIQUE: The patient's fasting blood glucose was 100. The patient weighed 186 lbs. The patient w as injected with 13.4 mCi of FDG in the right antecubital fossa at 1006 hours and imaging was started at 1104 hours. The patient was imaged from the skull base to the thighs. All CT scans at this [facility] are performed using CT dose reduction for ALARA by means of automated exposure control. Images we re reviewed on a workstation. COMPARISON: 07/16/2019 FINDINGS: IMAGED BRAIN: Physiologic FDG uptake. NECK: Physiologic FDG uptake. CHEST WALL: Previously described soft tissue mass in the lateral right chest wall adjacent to the ti p of the scapula has decreased in size from 2.5 x 1.9 cm to 2.2 x 1.0 cm. Max SUV has decreased from 3.6 to 2.7. MEDIASTINUM: Physiologic FDG uptake. LUNGS: Physiologic FDG uptake. Stable linear scarring in the posterior right upper lobe. No new pulm onary lesion is detected. HEPATOBILIARY: Physiologic FDG uptake. PANCREAS: Physiologic FDG uptake. SPLEEN: Physiologic FDG uptake. KIDNEYS/BLADDER: Physiologic FDG uptake. Cystectomy changes with ileal conduit formation and bilater al pelvic lymph node dissection are unchanged. ADRENAL GLANDS: Physiologic FDG uptake. GI/MESENTERY: Physiologic FDG uptake. PELVIC VISCERA: Physiologic FDG uptake. LYMPH NODES: Physiologic FDG uptake. OSSEOUS STRUCTURES: Physiologic FDG uptake. ADDITIONAL FINDINGS: None. IMPRESSION: Stable findings since 07/16/2019 examination. No evidence for disease recurrence or metastasis. Signer Name: Josef Fenton Jr, MD Signed: 07/07/2020 1:57 PM Workstation Name: [id number]
== END 2020-07-07 09:24 | disposition home or self-care (01) ==
LOC: PET 09:23
PROVIDERS: ATTEND Internal Medicine Hematology & Oncology
DX: C67.9 Malignant neoplasm of bladder, unspecified (principal); C34.91 Malignant neoplasm of unspecified part of right bronchus or lung; C34.31 Malignant neoplasm of lower lobe, right bronchus or lung
CPT/HCPCS: 78815; 82962; A9552

== ENCOUNTER 2021-02-23 09:08 | Outpatient (CLI) | payer MEDICARE ==
--- NOTE | 2021-02-23 13:16 | PET Report ---
PET-CT SCAN INDICATION / CLINICAL INFORMATION: C34.91 C67.9 C34.31. History of lung and bladder cancer. STAGING: Re-staging TECHNIQUE: Tumor imaging, positron emission tomography (PET) with concurrently acquired computed tomography (CT) for attenuation correction and anatomical localization; Skull Base to Mid Thigh - DOSE: 12.43 mCi F-18 FDG was administered IV per protocol in the right wrist - GLUCOSE: Patient's blood glucose at that time was (mg/dL): 95 - UPTAKE TIME: PET scan performed approximately 60 minutes after radiotracer administration. - CT SCAN DESCRIPTION: No oral or IV contrast. All CT scans at this location are performed using CT d ose reduction for ALARA by means of automated exposure control. COMPARISON: PET CT from 07/07/2020. FINDINGS: HEAD / NECK: No abnormal radiotracer uptake in the neck. No new significant CT abnormality. CHEST: No abnormal radiotracer uptake in the chest. A 3.0 x 1.0 lateral chest wall mass is again seen on image 87 adjacent to the inferior margin of the right scapula without suspiciously increased radi otracer uptake. This mass previously measured 3.0 x 2.2 cm by remeasurement. No other new significant CT abnormality. ABDOMEN / PELVIS: No abnormal radiotracer uptake in the abdomen or pelvis. No new significant CT abno rmality. LOWER EXTREMITIES: No abnormal radiotracer uptake in the visualized lower extremities. No significant CT abnormality. SKELETAL STRUCTURES: No hypermetabolic bone lesions. No new significant CT abnormality. ADDITIONAL FINDINGS: No additional significant findings. IMPRESSION: 1. No FDG avid neoplastic disease. 2. Further decrease in size of the previously described right lateral chest wall mass without suspici ous radiotracer uptake. Signer Name: Vincent Madera MD Signed: 02/23/2021 1:11 PM Workstation Name: [id number]
== END 2021-02-23 09:09 | disposition home or self-care (01) ==
LOC: PET 09:08
PROVIDERS: ATTEND Internal Medicine Hematology & Oncology
DX: C34.91 Malignant neoplasm of unspecified part of right bronchus or lung (principal); C67.9 Malignant neoplasm of bladder, unspecified; C34.31 Malignant neoplasm of lower lobe, right bronchus or lung; R91.8 Other nonspecific abnormal finding of lung field
CPT/HCPCS: 78815; 82962; A9552

== ENCOUNTER 2021-11-27 12:21 | Outpatient (CLI) | payer MEDICARE ==
[2021-11-27 13:39] LABS: Hematocrit 25.7 % (30.3-42.9); Hemoglobin 8.3 gm/dl (10.1-14.3); Mean Corpuscular HGB Conc 32 % (30-34); Mean Corpuscular Volume 102 fl (79-97); Platelet Count 130 K/mm3 (140-440); Red Blood Count 2.52 M/mm3 (3.65-5.03); Red Cell Distribution Width 16.6 % (13.2-15.2)
[2021-11-27 13:46] LABS: Bilirubin,Urine NEG (Negative); Blood,Urine NEG (Negative); Color,Urine Yellow (Yellow); Urobilinogen,Urine < 2.0 mg/dL (<2.0)
[2021-11-27 13:47] LABS: Bacteria,Urine 4+ /HPF (Negative)
[2021-11-27 13:57] LABS: Erythrocyte Sedimentation Rate > 140.0 mm/Hr (0-20)
[2021-11-27 14:01] LABS: Albumin 4.4 g/dL (3.9-5); Calcium 9.6 mg/dL (8.4-10.2); Chol/HDL Ratio 3.02 %
[2021-11-27 15:47] LABS: Band Neutrophils # (Manual) 0.3 K/mm3; Basophils % (Manual) 0 % (0.0-1.8); Total Cells Counted 100
[2021-11-27 15:48] LABS: Anisocytosis 1+; Large Platelets Few; Platelet Estimate Consistent w Auto
[2021-11-29 05:01] LABS: ANA Screen, IFA Positive (Negative)
[2021-11-30 13:09] LABS: Vitamin D, 25-OH, D2 17 ng/mL
== END 2021-11-27 12:22 | disposition home or self-care (01) ==
LOC: LAB 12:21
PROVIDERS: ATTEND Internal Medicine
DX: R73.9 Hyperglycemia, unspecified (principal); E78.5 Hyperlipidemia, unspecified; E03.9 Hypothyroidism, unspecified; E55.9 Vitamin D deficiency, unspecified; M13.0 Polyarthritis, unspecified; Z00.00 Encounter for general adult medical examination without abnormal findings
CPT/HCPCS: 36415; 80053; 80061; 81001; 82306; 82565; 83036; 84443; 85007; 85025; 85652; 86038; 86431; 87086

== ENCOUNTER 2022-01-03 13:26 | Inpatient (IN) | payer MEDICARE ==
[2022-01-03 15:06] LABS: Mean Corpuscular HGB Conc 32 % (30-34); Mean Corpuscular Volume 97 fl (79-97); Platelet Count 102 K/mm3 (140-440); Red Blood Count 1.52 M/mm3 (3.65-5.03)
[2022-01-03 15:07] LABS: Hematocrit 14.7 % (30.3-42.9); Hemoglobin 4.7 gm/dl (10.1-14.3)
[2022-01-03 15:10] LABS: Eosinophils # (Auto) 0.1 K/mm3 (0.0-0.4); Eosinophils % (Auto) 3.4 % (0.0-4.3); Monocytes # (Auto) 0.9 K/mm3 (0.0-0.8)
--- NOTE | 2022-01-03 15:35 | Emergency Department Report ---
HPI - General Chief Complaint: Weakness Time Seen by Provider: 01/03/22 15:17 - HPI HPI: Room 21 The patient is a 81-year-old female present with a chief complaint of not eating or drinking. Patient was recently discharged from an outside hospital for CVA and recent OK. Family said the patient to the ED today stating that she has not been eating or drinking for the past 3 days. Patient admits to occasional nausea but denies vomiting. Patient states her last bowel movement occurred yesterday she denies bright red blood per rectum or melena. 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) Hx GERD: Yes Hx of Cancer: Yes (Stage IV bladder CA last xrt/chemo 2015) Hx Arthritis: Yes Additional medical history: Hypothyroidism - Surgical History Hx Breast Surgery: Yes (RIGHT BREAST BX 07/2014) Additional Surgical History: Urostomy - Family History Family history: no significant - Social History Smoking Status: Never Smoker Substance Use Type: None - Medications Home Medications: Home Medications Medication Instructions Recorded Confirmed Last Taken Type Latanoprost 1 drop OU HS 08/05/14 07/28/19 07/27/19 History 1 drop Levothyroxine [Synthroid] 50 mcg PO QDAY 08/05/14 07/28/19 07/27/19 History 50 ncg ALPRAZolam [Xanax TAB] 1 mg PO PRN PRN 07/28/19 07/28/19 07/24/19 History 1 mg Escitalopram Oxalate [Lexapro] 20 mg PO HS 07/28/19 07/28/19 07/27/19 History 20 mg Pantoprazole [Protonix TAB] 20 mg PO DAILY 07/28/19 07/28/19 07/27/19 History 20 mg estradioL [Estradiol] 1 applicatio INTRADERMA 2XW 07/28/19 07/28/19 07/26/19 History 1 application ED Review of Systems ROS: Stated complaint: SEPSIS Other details as noted in HPI Constitutional: weakness Eyes: denies: eye pain ENT: denies: throat pain Respiratory: no symptoms reported Cardiovascular: denies: chest pain Endocrine: no symptoms reported Gastrointestinal: abdominal pain, nausea. denies: vomiting, hematemesis, melena, hematochezia Genitourinary: denies: hematuria Musculoskeletal: denies: back pain Neurological: denies: headache Physical Exam - Physical Exam Vital Signs: Vital Signs 01/03/22 13:27 Temperature 98.6 F Pulse Rate 110 H Respiratory 20 Rate Blood Pressure 109/47 [Left] O2 Sat by Pulse 100 Oximetry Physical Exam: GENERAL: The patient is well-developed well-nourished female lying on stretcher not appearing to be in acute distress. [] HEENT: Normocephalic. Atraumatic. Extraocular motions are intact. Patient has moist mucous membranes. NECK: Supple. Trachea midline CHEST/LUNGS: Clear to auscultation. There is no respiratory distress noted. HEART/CARDIOVASCULAR: Regular. There is no tachycardia. There is no gallop rub or murmur. ABDOMEN: Abdomen is soft, nontender. Patient has normal bowel sounds. There is no abdominal distention. SKIN: There is no rash. There is no edema. There is no diaphoresis. NEURO: The patient is awake, alert, and oriented. The patient is cooperative. The patient has no focal neurologic deficits. The patient has normal speech. GCS 15 MUSCULOSKELETAL: There is no evidence of acute injury. RECTAL: Light brown stool, guaiac positive per lab ED Course Vital Signs 01/03/22 13:27 Temperature 98.6 F Pulse Rate 110 H Respiratory 20 Rate Blood Pressure 109/47 [Left] O2 Sat by Pulse 100 Oximetry ED Medical Decision Making - Lab Data Result diagrams: 01/03/22 14:46 01/03/22 14:46 Laboratory Tests 01/03/22 01/03/22 01/03/22 14:46 14:46 14:46 WBC 3.6 L RBC 1.52 L Hgb 4.7 L* Hct 14.7 L* MCV 97 MCH 31 MCHC 32 RDW 21.0 H Plt Count 102 L [place] % (Auto) Fashion Model Eos % (Auto) 3.4 [place] # (Auto) 0.9 H Eos # (Auto) 0.1 Baso # (Auto) 0.0 Add Manual Diff Complete Total Counted 100 Seg Neutrophils % 46.8 Seg Neuts % (Manual) 27.0 L Band Neutrophils % 2.0 Lymphocytes % (Manual) 23.0 Reactive Lymphs % (Man) 0 Monocytes % (Manual) 22.0 H Eosinophils % (Manual) 8.0 H Basophils % (Manual) 1.0 Metamyelocytes % 13.0 Myelocytes % 4.0 Promyelocytes % 0 Blast Cells % 0 Nucleated RBC % 3.0 H Seg Neutrophils # 1.6 L Seg Neutrophils # Man 1.0 L Band Neutrophils # 0.1 Lymphocytes # (Manual) 0.8 L Abs React Lymphs (Man) 0.0 Monocytes # (Manual) 0.8 Eosinophils # (Manual) 0.3 Basophils # (Manual) 0.0 Metamyelocytes # 0.5 Myelocytes # 0.1 Promyelocytes # 0.0 Blast Cells # 0.0 Hypersegmented Neuts Not Reportable Hyposegmented Neuts Not Reportable Hypogranular Neuts Not Reportable Smudge Cells Not Reportable Toxic Granulation Not Reportable Toxic Vacuolation Not Reportable Dohle Bodies Not Reportable Pelger-Huet Anomaly Not Reportable Arturo Rods Not Reportable Platelet Estimate Consistent w auto Clumped Platelets Not Reportable Plt Clumps, EDTA Not Reportable Large Platelets Not Reportable Giant Platelets Not Reportable Platelet Satelliting Not Reportable Plt Morphology Comment Not Reportable RBC Morphology Not Reportable Dimorphic RBCs Not Reportable Polychromasia Few Hypochromasia Not Reportable Poikilocytosis Not Reportable Anisocytosis 1+ Microcytosis Not Reportable Macrocytosis Not Reportable Spherocytes Not Reportable Pappenheimer Bodies Not Reportable Sickle Cells Not Reportable Target Cells Not Reportable Tear Drop Cells Not Reportable Ovalocytes Not Reportable Helmet Cells Not Reportable [place] Bodies Not Reportable Arabi Rings Not Reportable Arnulfo Cells Not Reportable Bite Cells Not Reportable Crenated Cell Not Reportable Elliptocytes Not Reportable Acanthocytes (Spur) Not Reportable Rouleaux Not Reportable Hemoglobin C Crystals Not Reportable Schistocytes Not Reportable Malaria parasites Not Reportable Marky Bodies Not Reportable Hem Pathologist Commnt No Sodium 135 L Potassium 5.0 Chloride 102.4 Carbon Dioxide 17 L Anion Gap 21 BUN 23 H Creatinine 1.2 Estimated GFR 43 BUN/Creatinine Ratio 19 Glucose 96 Lactic Acid 0.80 Calcium 8.7 Total Bilirubin 0.30 AST 10 ALT 13 Alkaline Phosphatase 83 Troponin T 0.172 H* Total Protein 6.5 Albumin 2.8 L Albumin/Globulin Ratio 0.8 Lipase TSH Free T4 Blood Type Antibody Screen Crossmatch 01/03/22 01/03/22 01/03/22 14:46 15:26 15:26 WBC RBC Hgb Hct MCV MCH MCHC RDW Plt Count [place] % (Auto) Eos % (Auto) [place] # (Auto) Eos # (Auto) Baso # (Auto) Add Manual Diff Total Counted Seg Neutrophils % Seg Neuts % (Manual) Band Neutrophils % Lymphocytes % (Manual) Reactive Lymphs % (Man) Monocytes % (Manual) Eosinophils % (Manual) Basophils % (Manual) Metamyelocytes % Myelocytes % Promyelocytes % Blast Cells % Nucleated RBC % Seg Neutrophils # Seg Neutrophils # Man Band Neutrophils # Lymphocytes # (Manual) Abs React Lymphs (Man) Monocytes # (Manual) Eosinophils # (Manual) Basophils # (Manual) Metamyelocytes # Myelocytes # Promyelocytes # Blast Cells # Hypersegmented Neuts Hyposegmented Neuts Hypogranular Neuts Smudge Cells Toxic Granulation Toxic Vacuolation Dohle Bodies Pelger-Huet Anomaly Arturo Rods Platelet Estimate Clumped Platelets Plt Clumps, EDTA Large Platelets Giant Platelets Platelet Satelliting Plt Morphology Comment RBC Morphology Dimorphic RBCs Polychromasia Hypochromasia Poikilocytosis Anisocytosis Microcytosis Macrocytosis Spherocytes Pappenheimer Bodies Sickle Cells Target Cells Tear Drop Cells Ovalocytes Helmet Cells Lewis-[place] Roads Bodies Arabi Rings Arnulfo Cells Bite Cells Crenated Cell Elliptocytes Acanthocytes (Spur) Rouleaux Hemoglobin C Crystals Schistocytes Malaria parasites Marky Bodies Hem Pathologist Commnt Sodium Potassium Chloride Carbon Dioxide Anion Gap BUN Creatinine Estimated GFR BUN/Creatinine Ratio Glucose Lactic Acid Calcium Total Bilirubin AST ALT Alkaline Phosphatase Troponin T Total Protein Albumin Albumin/Globulin Ratio Lipase 35 TSH 1.640 Free T4 1.38 Blood Type O NEGATIVE Antibody Screen Negative Crossmatch See Detail - EKG Data -: EKG Interpreted by Me EKG shows normal: sinus rhythm Rate: normal - EKG Data When compared to previous EKG there are: previous EKG unavailable Interpretation: nonspecific ST-T wave gibson (T wave inversions inferolaterally) - Differential Diagnosis Symptomatic anemia Critical care attestation.: If time is entered above; I have spent that time in minutes in the direct care of this critically ill patient, excluding procedure time. ED Disposition Clinical Impression: Symptomatic anemia, Pancytopenia Disposition: ADMITTED INPATIENT Is pt being admited?: Yes Does the pt Need Aspirin: No Condition: Fair Referrals: PRIMARY CARE,MD [Primary Care Provider] - 3-5 Days Time of Disposition: 17:28 (Hospitalist notified (Dr. Perez))
[2022-01-03 15:46] LABS: Band Neutrophils # (Manual) 0.1 K/mm3; Myelocytes # (Manual) 0.1 K/mm3; Total Cells Counted 100
[2022-01-03 15:47] LABS: Anisocytosis 1+; Platelet Estimate Consistent w Auto
--- NOTE | 2022-01-03 16:12 | XRay Report ---
CHEST 1 VIEW 01/03/2022 3:02 PM INDICATION / CLINICAL INFORMATION: sob. COMPARISON: PET CT 02/23/2021 FINDINGS: SUPPORT DEVICES: None. HEART / MEDIASTINUM: No significant abnormality. LUNGS / PLEURA: No significant pulmonary or pleural abnormality. Scarring remains right apex. No pneu mothorax. ADDITIONAL FINDINGS: No significant additional findings. IMPRESSION: No acute abnormality. Signer Name: Robson Bradford MD Signed: 01/03/2022 4:08 PM Workstation Name: [id number]
[2022-01-03 16:21] LABS: Free T4 (Free Thyroxine) 1.38 ng/dL (0.76-1.46)
[2022-01-03] MEDS ORDERED: SODIUM CHLORIDE 0.9% 500 ML 500 ML IV ONE (16:29)
[2022-01-03 17:25] LABS: Albumin 2.8 g/dL (3.9-5); Calcium 8.7 mg/dL (8.4-10.2)
--- NOTE | 2022-01-03 17:45 | History and Physical Report ---
History of Present Illness Chief complaint: I am getting weak History of present illness: 81 YO Female with Obesity, GERD, HTN, OA, Bladder Cancer with metastatic disease to Lung and right Breast S/P Mastectomy, Hypothyroidism, CVA, [place], Debility presents to ED for evaluation. Patient reports "I feel weak". Patient states that she has experienced progressive weakness over the past 1 week with worsening symptoms over the past 3 days. Patient knowledges loss of appetite, decreased oral intake. Patient is currently bedbound and nonambulatory due to progressive muscular weakness resulting in gait instability. Patient currently requires 5/6 assistance with activities of daily living. Patient also acknowledges nausea. EMS notified and upon arrival the patient was found to be in distress and subsequently transported to [facility] for further care and evaluation of the aforementioned symptoms. The patient was seen and evaluated in the emergency department. All lab and imaging studies reviewed. Patient found to have symptomatic anemia, pancytopenia, hyponatremia, and suspected recurrence of malignancy. Patient admitted to medical floor due to increased risk of worsening symptoms. Patient denies fever, chills, chest pain, palpitation or productive cough, skin rash or recent contact, known exposure to COVID-19. No prior admission for review. All medication listed at time of admission has been reconciled. Advanced care planning conducted in ED. Past History Past Medical History: anemia, cancer, other (See HPI) Past Surgical History: mastectomy Social history: , Lives alone. denies: smoking, alcohol abuse, prescription drug abuse Family history: hypertension Medications and Allergies Allergies Allergy/AdvReac Type Severity Reaction Status Date / Time levofloxacin [From Levaquin] AdvReac Severe AFFECTS Verified 01/03/22 13:32 MUSCLES [id number] Reductase AdvReac Muscle Verified 01/03/22 13:32 Inhibitor weakness [Peatkll-Bqa-Ywq Reductase Inhibitor] Home Medications Medication Instructions Recorded Confirmed Last Taken Type Latanoprost 1 drop OU HS 08/05/14 07/28/19 07/27/19 History 1 drop Levothyroxine [Synthroid] 50 mcg PO QDAY 08/05/14 07/28/19 07/27/19 History 50 ncg ALPRAZolam [Xanax TAB] 1 mg PO PRN PRN 07/28/19 07/28/19 07/24/19 History 1 mg Escitalopram Oxalate [Lexapro] 20 mg PO HS 07/28/19 07/28/19 07/27/19 History 20 mg Pantoprazole [Protonix TAB] 20 mg PO DAILY 07/28/19 07/28/19 07/27/19 History 20 mg estradioL [Estradiol] 1 applicatio INTRADERMA 2XW 07/28/19 07/28/19 07/26/19 History 1 application Review of Systems Constitutional: anorexia, weakness, no fever, no chills, no sweats Ears, nose, mouth and throat: no ear pain, no tinnitis, no nose pain Breasts: no change in shape, no mass Cardiovascular: no rapid/irregular heart beat, no edema Respiratory: no cough, no excessive sputum, no hemoptysis, no shortness of breath Gastrointestinal: no vomiting, no diarrhea, no constipation, no change in bowel habits, no BRBPR Genitourinary Female: no pelvic pain, no flank pain, no dysuria, no urinary frequency Rectal: no pain, no incontinence, no bleeding Musculoskeletal: no neck stiffness, no shooting arm pain, no low back pain, no shooting leg pain Integumentary: no rash, no pruritis, no sores, no jaundice Neurological: no paralysis, no parathesias, no tingling, no syncope, no tremors Psychiatric: no anxiety, no memory loss, no sleep disturbances, no hypersomnia, no suicidal ideation Endocrine: no cold intolerance, no polyphagia, no excessive thirst, no polyuria Hematologic/Lymphatic: no easy bruising, no easy bleeding Allergic/Immunologic: no urticaria, no allergic rhinitis, no wheezing Exam - Constitutional Vitals: Temp Pulse Resp BP Pulse Ox 99.2 F 94 H 16 100/33 100 01/03/22 17:25 01/03/22 17:25 01/03/22 17:25 01/03/22 17:25 01/03/22 17:25 General appearance: Present: mild distress - EENT Eyes: Present: PERRL (Conjunctival pallor) ENT: hearing intact, clear oral mucosa - Neck Neck: Present: supple, normal ROM - Respiratory Respiratory: bilateral: CTA - Cardiovascular Heart Sounds: Present: S1 & S2. Absent: rub, click - Extremities Extremities: pulses symmetrical, No edema Peripheral Pulses: within normal limits - Abdominal General gastrointestinal: Present: soft, non-tender, non-distended, normal bowel sounds Female genitourinary: Present: normal - Integumentary Integumentary: Present: dry, clammy, decreased turgor - Musculoskeletal Musculoskeletal: generalized weakness - Psychiatric Psychiatric: appropriate mood/affect, intact judgment & insight, memory intact - Neurologic Neurologic: CNII-XII intact, moves all extremities, no gait normal HEART Score - HEART Score Troponin: Troponin T 0.172 ng/mL (0.00-0.029) H* 01/03/22 14:46 Results - Labs CBC & Chem 7: 01/03/22 14:46 01/03/22 14:46 Labs: Abnormal lab results 01/03/22 01/03/22 01/03/22 Range/Units 14:46 14:46 15:26 WBC 3.6 L (4.5-11.0) K/mm3 RBC 1.52 L (3.65-5.03) M/mm3 Hgb 4.7 L* (10.1-14.3) gm/dl Hct 14.7 L* (30.3-42.9) % RDW 21.0 H (13.2-15.2) % Plt Count 102 L (140-440) K/mm3 [place] # (Auto) 0.9 H (0.0-0.8) K/mm3 Seg Neuts % (Manual) 27.0 L (40.0-70.0) % Monocytes % (Manual) 22.0 H (0.0-7.3) % Eosinophils % (Manual) 8.0 H (0.0-4.3) % Nucleated RBC % 3.0 H (0.0-0.9) % Seg Neutrophils # 1.6 L (1.8-7.7) K/mm3 Seg Neutrophils # Man 1.0 L (1.8-7.7) K/mm3 Lymphocytes # (Manual) 0.8 L (1.2-5.4) K/mm3 Sodium 135 L (137-145) mmol/L Carbon Dioxide 17 L (22-30) mmol/L BUN 23 H (7-17) mg/dL Troponin T 0.172 H* (0.00-0.029) ng/mL Albumin 2.8 L (3.9-5) g/dL Crossmatch See Detail Assessment and Plan - Patient Problems (1) Symptomatic anemia Current Visit: Yes Status: Acute Plan to address problem: CBC, Blood cell transfusion, supportive care. Repeat CBC in a.m. (2) Lung cancer Current Visit: Yes Status: Acute Plan to address problem: Outpatient oncology follow-up. Further testing and evaluation as per oncology team. (3) Debility Current Visit: Yes Status: Acute Plan to address problem: Supportive care, fall precautions, pain control. Supportive care. (4) Bladder cancer Current Visit: Yes Status: Acute Plan to address problem: Outpatient oncology follow-up. Further care and evaluation as per oncology team. (5) Pancytopenia Current Visit: Yes Status: Acute Plan to address problem: Supportive care, suspected secondary to malignancy with metastatic disease to the bone. Outpatient oncology follow-up, supportive care. (6) DVT prophylaxis Current Visit: Yes Status: Acute Plan to address problem: SCDs bilateral lower extremities while in bed (7) Advance care planning Current Visit: Yes Status: Acute Plan to address problem: Disease education conducted, care plan discussed, diagnoses discussed, prognosis discussed. Patient is full code. Patient formed of the suspicion for recurrent malignancy. Patient informed of care options. Patient contemplating desire to continue further testing and evaluation versus hospice care at home. Patient knowledges understanding instructions. Patient reports that she needs time to think about her decision. +30 minutes.
[2022-01-03] MEDS ORDERED: ALBUTEROL 2.5 MG/3 ML NEBU IH PRN (17:50)
[2022-01-03] MEDS ORDERED: ACETAMINOPHEN 325 MG TAB PO PRN (17:50)
[2022-01-03] MEDS ORDERED: oxyCODONE /ACETAMINOPHEN 5-325MG TAB PO PRN (17:50)
[2022-01-03] MEDS ORDERED: ONDANSETRON 4 MG/2 ML INJ IV PRN (17:50)
[2022-01-03] MEDS ORDERED: HYDROmorphone 1 MG/1 ML INJ IV PRN (17:50)
[2022-01-03 17:51] LABS: Chol/HDL Ratio 2.5 %
[2022-01-03] MEDS ORDERED: ALPRAZolam 1 MG TAB PO PRN (17:52)
[2022-01-03] MEDS ORDERED: SODIUM CHLORIDE 0.9% 500 ML 500 ML IV SCH (17:52)
[2022-01-03] MEDS ORDERED: SODIUM CHLORIDE 0.9% 1000 ML 1,000 ML IV SCH (18:00)
[2022-01-03] MEDS: ESCITALOPRAM 10 MG TAB PO SCH (21:43)
[2022-01-03] MEDS ORDERED: NON-FORMULARY EACH (Escitalopram Oxalate [Lexapro] 20 MG Tablet) PO SCH (22:00)
[2022-01-03] MEDS: LATANOPROST 0.005% OPHTH SOLN 2.5 ML OU SCH (22:13)
[2022-01-04 03:13] LABS: Mucus,Urine FEW /HPF
[2022-01-04 03:21] LABS: Color,Urine Colorless (Yellow)
[2022-01-04 03:22] LABS: Bilirubin,Urine Negative (Negative); Blood,Urine Negative (Negative); Urobilinogen,Urine < 2.0 mg/dL (<2.0)
[2022-01-04] MEDS: LEVOTHYROXINE 50 MCG TAB PO SCH (05:40)
[2022-01-04 06:10] LABS: Hematocrit 23.5 % (30.3-42.9); Hemoglobin 8.1 gm/dl (10.1-14.3)
[2022-01-04] MEDS: PANTOPRAZOLE 20 MG TAB PO SCH (09:28)
--- NOTE | 2022-01-04 13:26 | Electrocardiograph Report ---
[facility] Test Date: 2022-01-03 Test Time: 17:33:04 Pat Name: ANNIE DU Department: Room: A387 1 Gender: F Integration Analyst: NURSE : 1940 Requested By: LARRY WALTER Order Number: [id number] Reading MD: Heidi Edwards Measurements Intervals [place] Rate: 96 P: 14 [place]: 166 QRS: 60 QRSD: 83 T: 255 QT: 338 QTc: 427 Interpretive Statements Sinus rhythm Nonspecific T abnormalities, diffuse leads No previous ECG available for comparison Electronically Signed On 01-04-2022 13:25:59 EST by Heidi Edwards
--- NOTE | 2022-01-04 14:56 | Progress Note ---
Assessment and Plan Assessment and plan: #Symptomatic anemia-improved -received 2 units of blood, Hgb improved to 8.1 -no signs of overt bleeding, hemoccult negative -will transfuse for Hgb less than 7 #Hx of Lung cancer, bladder cancer -per patient and family in remission -no treatment required at this time -will follow up with Heme/Onc outpatient #Debility -patient bedbound since stroke several months ago -PT evaluation #NSTEMI -Troponin elevated, EKG reviewed no ST changes -Likely type II secondary to anemia -We will repeat troponin #Advance care planning -Disease education conducted, care plan discussed, diagnoses discussed, prognosis discussed. Patient is full code. Family (son) interested in home hospice. Will proceed with hospice services to be provided at discharge. +30 minutes. History Interval history: No acute events overnight. Patient alert to person, place and situation. Denies pain or discomfort at this time. Hospitalist Physical - Physical exam Narrative exam: GENERAL: Well-developed well-nourished. In no acute distress. HEENT: Normocephalic. Atraumatic. NECK: Supple. CHEST/LUNGS: CTAB on room air HEART/CARDIOVASCULAR: RRR. No murmur, rubs or gallops appreciated. ABDOMEN: +BS. NT/ND. SKIN: No rashes noted. NEURO: No focal motor deficit. Follows all commands and is ambulatory. MUSCULOSKELETAL: No joint effusion appreciated. Right knee is tender to palpation. EXTREMITIES: No cyanosis, clubbing or edema. PSYCH: Cooperative. - Constitutional Vitals: Temp Pulse Resp BP Pulse Ox 97.9 F 56 L 18 138/69 97 01/04/22 06:38 01/04/22 06:38 01/04/22 06:38 01/04/22 06:38 01/04/22 10:00 General appearance: Present: mild distress HEART Score - HEART Score Troponin: Troponin T 0.172 ng/mL (0.00-0.029) H* 01/03/22 14:46 Results - Labs CBC & Chem 7: 01/04/22 05:33 01/03/22 14:46 Labs: Laboratory Last Values WBC 3.6 K/mm3 (4.5-11.0) L 01/03/22 14:46 RBC 1.52 M/mm3 (3.65-5.03) L 01/03/22 14:46 Hgb 8.1 gm/dl (10.1-14.3) L D 01/04/22 05:33 Hct 23.5 % (30.3-42.9) L D 01/04/22 05:33 MCV 97 fl (79-97) 01/03/22 14:46 MCH 31 pg (28-32) 01/03/22 14:46 MCHC 32 % (30-34) 01/03/22 14:46 RDW 21.0 % (13.2-15.2) H 01/03/22 14:46 Plt Count 102 K/mm3 (140-440) L 01/03/22 14:46 [place] % (Auto) Fruit Raiser 01/03/22 14:46 Eos % (Auto) 3.4 % (0.0-4.3) 01/03/22 14:46 [place] # (Auto) 0.9 K/mm3 (0.0-0.8) H 01/03/22 14:46 Eos # (Auto) 0.1 K/mm3 (0.0-0.4) 01/03/22 14:46 Baso # (Auto) 0.0 K/mm3 (0.0-0.1) 01/03/22 14:46 Add Manual Diff Complete 01/03/22 14:46 Total Counted 100 01/03/22 14:46 Seg Neutrophils % 46.8 % (40.0-70.0) 01/03/22 14:46 Seg Neuts % (Manual) 27.0 % (40.0-70.0) L 01/03/22 14:46 Band Neutrophils % 2.0 % 01/03/22 14:46 Lymphocytes % (Manual) 23.0 % (13.4-35.0) 01/03/22 14:46 Reactive Lymphs % (Man) 0 % 01/03/22 14:46 Monocytes % (Manual) 22.0 % (0.0-7.3) H 01/03/22 14:46 Eosinophils % (Manual) 8.0 % (0.0-4.3) H 01/03/22 14:46 Basophils % (Manual) 1.0 % (0.0-1.8) 01/03/22 14:46 Metamyelocytes % 13.0 % 01/03/22 14:46 Myelocytes % 4.0 % 01/03/22 14:46 Promyelocytes % 0 % 01/03/22 14:46 Blast Cells % 0 % 01/03/22 14:46 Nucleated RBC % 3.0 % (0.0-0.9) H 01/03/22 14:46 Seg Neutrophils # 1.6 K/mm3 (1.8-7.7) L 01/03/22 14:46 Seg Neutrophils # Man 1.0 K/mm3 (1.8-7.7) L 01/03/22 14:46 Band Neutrophils # 0.1 K/mm3 01/03/22 14:46 Lymphocytes # (Manual) 0.8 K/mm3 (1.2-5.4) L 01/03/22 14:46 Abs React Lymphs (Man) 0.0 K/mm3 01/03/22 14:46 Monocytes # (Manual) 0.8 K/mm3 (0.0-0.8) 01/03/22 14:46 Eosinophils # (Manual) 0.3 K/mm3 (0.0-0.4) 01/03/22 14:46 Basophils # (Manual) 0.0 K/mm3 (0.0-0.1) 01/03/22 14:46 Metamyelocytes # 0.5 K/mm3 01/03/22 14:46 Myelocytes # 0.1 K/mm3 01/03/22 14:46 Promyelocytes # 0.0 K/mm3 01/03/22 14:46 Blast Cells # 0.0 K/mm3 01/03/22 14:46 WBC Morphology Not Reportable 01/03/22 14:46 Hypersegmented Neuts Not Reportable 01/03/22 14:46 Hyposegmented Neuts Not Reportable 01/03/22 14:46 Hypogranular Neuts Not Reportable 01/03/22 14:46 Smudge Cells Not Reportable 01/03/22 14:46 Toxic Granulation Not Reportable 01/03/22 14:46 Toxic Vacuolation Not Reportable 01/03/22 14:46 Dohle Bodies Not Reportable 01/03/22 14:46 Pelger-Huet Anomaly Not Reportable 01/03/22 14:46 Arturo Rods Not Reportable 01/03/22 14:46 Platelet Estimate Consistent w auto 01/03/22 14:46 Clumped Platelets Not Reportable 01/03/22 14:46 Plt Clumps, EDTA Not Reportable 01/03/22 14:46 Large Platelets Not Reportable 01/03/22 14:46 Giant Platelets Not Reportable 01/03/22 14:46 Platelet Satelliting Not Reportable 01/03/22 14:46 Plt Morphology Comment Not Reportable 01/03/22 14:46 RBC Morphology Not Reportable 01/03/22 14:46 Dimorphic RBCs Not Reportable 01/03/22 14:46 Polychromasia Few 01/03/22 14:46 Hypochromasia Not Reportable 01/03/22 14:46 Poikilocytosis Not Reportable 01/03/22 14:46 Anisocytosis 1+ 01/03/22 14:46 Microcytosis Not Reportable 01/03/22 14:46 Macrocytosis Not Reportable 01/03/22 14:46 Spherocytes Not Reportable 01/03/22 14:46 Pappenheimer Bodies Not Reportable 01/03/22 14:46 Sickle Cells Not Reportable 01/03/22 14:46 Target Cells Not Reportable 01/03/22 14:46 Tear Drop Cells Not Reportable 01/03/22 14:46 Ovalocytes Not Reportable 01/03/22 14:46 Helmet Cells Not Reportable 01/03/22 14:46 Lewis-Bernice Bodies Not Reportable 01/03/22 14:46 Fishers Rings Not Reportable 01/03/22 14:46 Arnulfo Cells Not Reportable 01/03/22 14:46 Bite Cells Not Reportable 01/03/22 14:46 Crenated Cell Not Reportable 01/03/22 14:46 Elliptocytes Not Reportable 01/03/22 14:46 Acanthocytes (Spur) Not Reportable 01/03/22 14:46 Rouleaux Not Reportable 01/03/22 14:46 Hemoglobin C Crystals Not Reportable 01/03/22 14:46 Schistocytes Not Reportable 01/03/22 14:46 Malaria parasites Not Reportable 01/03/22 14:46 Marky Bodies Not Reportable 01/03/22 14:46 Hem Pathologist Commnt No 01/03/22 14:46 Sodium 135 mmol/L (137-145) L 01/03/22 14:46 Potassium 5.0 mmol/L (3.6-5.0) 01/03/22 14:46 Chloride 102.4 mmol/L (98-107) 01/03/22 14:46 Carbon Dioxide 17 mmol/L (22-30) L 01/03/22 14:46 Anion Gap 21 mmol/L 01/03/22 14:46 BUN 23 mg/dL (7-17) H 01/03/22 14:46 Creatinine 1.2 mg/dL (0.6-1.2) 01/03/22 14:46 Estimated GFR 43 ml/min 01/03/22 14:46 BUN/Creatinine Ratio 19 % 01/03/22 14:46 Glucose 96 mg/dL (65-100) 01/03/22 14:46 Lactic Acid 0.80 mmol/L (0.7-2.0) 01/03/22 14:46 Calcium 8.7 mg/dL (8.4-10.2) 01/03/22 14:46 Total Bilirubin 0.30 mg/dL (0.1-1.2) 01/03/22 14:46 AST 10 units/L (5-40) 01/03/22 14:46 ALT 13 units/L (7-56) 01/03/22 14:46 Alkaline Phosphatase 83 units/L (35-129) 01/03/22 14:46 Troponin T 0.172 ng/mL (0.00-0.029) H* 01/03/22 14:46 Total Protein 6.5 g/dL (6.3-8.2) 01/03/22 14:46 Albumin 2.8 g/dL (3.9-5) L 01/03/22 14:46 Albumin/Globulin Ratio 0.8 % 01/03/22 14:46 Triglycerides 71 mg/dL (2-149) 01/03/22 14:46 Cholesterol 100 mg/dL (50-199) 01/03/22 14:46 LDL Cholesterol Direct 47 mg/dL (50-130) L 01/03/22 14:46 HDL Cholesterol 40 mg/dL (40-59) 01/03/22 14:46 Cholesterol/HDL Ratio 2.50 % 01/03/22 14:46 Lipase 35 units/L (13-60) 01/03/22 14:46 TSH 1.640 mlU/mL (0.270-4.200) 01/03/22 15:26 Free T4 1.38 ng/dL (0.76-1.46) 01/03/22 15:26 Urine Color Colorless (Yellow) 01/03/22 02:36 Urine Turbidity Hazy (Clear) 01/03/22 02:36 Urine pH 6.0 (5.0-7.0) 01/03/22 02:36 Ur Specific [place] 1.010 (1.003-1.030) 01/03/22 02:36 Urine Protein 30 mg/dl mg/dL (Negative) 01/03/22 02:36 Urine Glucose (UA) Negative mg/dL (Negative) 01/03/22 02:36 Urine Ketones Trace mg/dL (Negative) 01/03/22 02:36 Urine Blood Negative (Negative) 01/03/22 02:36 Urine Nitrite Negative (Negative) 01/03/22 02:36 Ur Reducing Substances Not Reportable 01/03/22 02:36 Urine Bilirubin Negative (Negative) 01/03/22 02:36 Urine Ictotest Not Reportable 01/03/22 02:36 Urine Urobilinogen < 2.0 mg/dL (<2.0) 01/03/22 02:36 Ur Leukocyte Esterase <2.0 (Negative) 01/03/22 02:36 Urine WBC (Auto) 33.0 /HPF (0.0-6.0) H 01/03/22 02:36 Urine RBC (Auto) 39.0 /HPF (0.0-6.0) 01/03/22 02:36 U Epithel Cells (Auto) < 1.0 /HPF (0-13.0) 01/03/22 02:36 Urine Mucus Few /HPF 01/03/22 02:36 Urine Yeast (Budding) 3+ /HPF 01/03/22 02:36 Blood Type O NEGATIVE 01/03/22 15:26 Antibody Screen Negative 01/03/22 15:26 Crossmatch See Detail 01/03/22 15:26 Microbiology: Microbiology 01/03/22 15:41 Stool Stool Occult Blood (HELIO) - Final Caceres/IV: Voiding Method Ileal Conduit (Right) Active Medications - Current Medications Current Medications: Generic Name Dose Route Start Last Admin Trade Name Freq PRN Reason Stop Dose Admin Acetaminophen 650 mg 01/03/22 17:50 Acetaminophen 325 Mg Tab PO Q4H PRN Pain MILD(1-3)/Fever >100.5/MARIE Albuterol 2.5 mg 01/03/22 17:50 Albuterol 2.5 Mg/3 Ml Nebu IH Q4HRT PRN Shortness Of Breath Alprazolam 1 mg 01/03/22 17:52 Alprazolam 1 Mg Tab PO PRN PRN Anxiety Escitalopram Oxalate 20 mg 01/03/22 22:00 01/03/22 21:43 Escitalopram 10 Mg Tab PO 20 mg HS JAZZY Administration Hydromorphone HCl 0.5 mg 01/03/22 17:50 Hydromorphone 1 Mg/1 Ml Inj IV Q23H PRN Pain , Severe (7-10) Sodium Chloride 1,000 mls @ 42 mls/hr 01/03/22 18:00 01/04/22 02:44 Nacl 0.9% 1000 Ml IV 42 mls/hr DIRECT JAZZY Administration Latanoprost 1 drops 01/03/22 22:00 01/03/22 22:13 Latanoprost 0.005% Ophth Soln 2.5 Ml OU 1 drops HS JAZZY Administration Levothyroxine Sodium 50 mcg 01/04/22 06:00 01/04/22 05:40 Levothyroxine 50 Mcg Tab PO 50 mcg DAILY@0600 JAZZY Administration Ondansetron HCl 4 mg 01/03/22 17:50 Ondansetron 4 Mg/2 Ml Inj IV Q8H PRN Nausea And Vomiting Oxycodone/Acetaminophen 1 tab 01/03/22 17:50 Oxycodone /Acetaminophen 5-325mg Tab PO Q6H PRN Pain, Moderate (4-6) Pantoprazole Sodium 20 mg 01/04/22 10:00 01/04/22 09:28 Pantoprazole 20 Mg Tab PO 20 mg DAILY JAZZY Administration Sodium Chloride 10 ml 01/03/22 22:00 01/04/22 09:28 Sodium Chloride 0.9% 10 Ml Flush Syringe IV 10 ml BID JAZZY Administration Sodium Chloride 10 ml 01/03/22 17:50 Sodium Chloride 0.9% 10 Ml Flush Syringe IV PRN PRN LINE FLUSH
[2022-01-05] MEDS: LATANOPROST 0.005% OPHTH SOLN 2.5 ML OU SCH (00:26)
[2022-01-05] MEDS: ESCITALOPRAM 10 MG TAB PO SCH (00:27)
[2022-01-05 05:46] LABS: Hematocrit 25.5 % (30.3-42.9); Hemoglobin 8.4 gm/dl (10.1-14.3); Mean Corpuscular HGB Conc 33 % (30-34); Mean Corpuscular Volume 93 fl (79-97); Red Blood Count 2.75 M/mm3 (3.65-5.03); Red Cell Distribution Width 16.3 % (13.2-15.2)
[2022-01-05 05:47] LABS: Platelet Count 81 K/mm3 (140-440)
[2022-01-05] MEDS: LEVOTHYROXINE 50 MCG TAB PO SCH (06:36)
--- NOTE | 2022-01-05 07:50 | Discharge Summary ---
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 For any of your health care needs you can also ask the hospice agency. Follow up with: PRIMARY MD CLAY [Primary Care Provider] - 3-5 Days
[2022-01-05] MEDS: PANTOPRAZOLE 20 MG TAB PO SCH (09:21)
[2022-01-05 11:53] VITALS: BP 111/46
[2022-01-05] MEDS ORDERED: FLUCONAZOLE 100 MG TAB PO SCH (15:00)
== END 2022-01-05 18:00 | disposition hospice, home (50) | DRG 808 ==
LOC: ED 13:26 → 3A 17:50
PROVIDERS: ADMIT Internal Medicine; ATTEND Student in an Organized Health Care Education/Training Program
PROC: 30233N1 Transfusion of Nonautologous Red Blood Cells into Peripheral Vein, Percutaneous Approach (ICD-10-PCS; principal; 2022-01-03)
DX: D61.818 Other pancytopenia (principal); I21.A1 Myocardial infarction type 2; C78.00 Secondary malignant neoplasm of unspecified lung; C67.9 Malignant neoplasm of bladder, unspecified; D49.4 Neoplasm of unspecified behavior of bladder; Z88.8 Allergy status to other drugs, medicaments and biological substances; M19.90 Unspecified osteoarthritis, unspecified site; Z86.73 Personal history of transient ischemic attack (TIA), and cerebral infarction without residual deficits; E03.9 Hypothyroidism, unspecified; K21.9 Gastro-esophageal reflux disease without esophagitis; Z85.51 Personal history of malignant neoplasm of bladder; Z85.3 Personal history of malignant neoplasm of breast; Z74.01 Bed confinement status; Z82.49 Family history of ischemic heart disease and other diseases of the circulatory system; R53.81 Other malaise
CPT/HCPCS: 36415; 71045; 80053; 80061; 81001; 82140; 82271; 83690; 84439; 84443; 84484; 85007; 85014; 85018; 85025; 85027; 86850; 86900; 86901; 86920; 87086; 93005; 93010; G0378; Q0162; J7030; J7040; P9016